=== PATIENT | female | born 1960 | race Caucasian/White ===

== ENCOUNTER 2016-08-20 18:58 | Emergency (ER) | payer MEDICAID ==
[2016-08-20] MEDS ORDERED: OXYCODONE/APAP 5/325 TAB ONE (19:34)
[2016-08-20] MEDS ORDERED: OXYCODONE/APAP 5/325 TAB PO ONE (19:35)
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
[2016-08-20] MEDS ORDERED: OXYCODONE/APAP 5/325MG PREPACK#4 BTL TAKEHOME ONE (20:31)
[2016-08-20 20:44] VITALS: BP 110/68; PULSE 90; RESP 16; TEMP 98.6; O2SAT 95
== END 2016-08-20 20:44 | disposition home or self-care (01) ==
DX: T20.20XA Burn of second degree of head, face, and neck, unspecified site, initial encounter (principal); T20.26XA Burn of second degree of forehead and cheek, initial encounter; X08.8XXA Exposure to other specified smoke, fire and flames, initial encounter

== ENCOUNTER 2016-08-22 12:22 | Emergency (ER) | payer MEDICAID ==
[2016-08-22] MEDS ORDERED: ONDANSETRON DISINTEGRATING 4 MG TAB PO ONE (12:43)
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
[2016-08-22 14:36] VITALS: BP 114/69; PULSE 78; RESP 20; TEMP 98.2; O2SAT 97
== END 2016-08-22 14:36 | disposition home or self-care (01) ==
DX: S06.0X0A Concussion without loss of consciousness, initial encounter (principal); W22.8XXA Striking against or struck by other objects, initial encounter